=== PATIENT | female | born 1990 | race Two or more races ===

== ENCOUNTER 2017-07-13 05:22 | Inpatient (IN) | payer OTHER ==
[2017-07-13] MEDS ORDERED: BUTORPHANOL 2 MG INJ (05:31)
[2017-07-13] MEDS ORDERED: LACTATED RINGER'S 1,000 ML IV (05:36)
[2017-07-13] MEDS ORDERED: METHYLERGONOVINE 0.2 MG INJ (05:38)
[2017-07-13] MEDS ORDERED: IBUPROFEN 600 MG TAB PO (06:00)
[2017-07-13] MEDS ORDERED: OXYCODONE/ASPIRIN (4.88/325) TAB PO (06:00)
[2017-07-13] MEDS ORDERED: MISOPROSTOL 200 MCG TAB PR ×2 (06:00→10:00)
[2017-07-13] MEDS ORDERED: CARBOPROST 250 MCG INJ IM ×2 (06:00→10:00)
[2017-07-13] MEDS ORDERED: OXYTOCIN 30 UNITS/LR 500 ML IV ×2 (06:00→10:00)
[2017-07-13] MEDS: OXYTOCIN 30 UNITS/LR 500 ML IV ×3 (06:11→09:48)
[2017-07-13] MEDS: BUTORPHANOL 2 MG INJ IV (06:21)
[2017-07-13] MEDS: METHYLERGONOVINE 0.2 MG INJ IM (06:21)
[2017-07-13 06:54] LABS: ADD MAN DIFF? NO
[2017-07-13 07:02] LABS: BASOPHILS % 0.2 % (0.0-2.0); EOSINOPHILS % 0.2 % (0.0-7.0); HEMATOCRIT 39.6 % (37.0-47.0); HEMOGLOBIN 13.4 g/dl (12.0-16.0); LYMPHOCYTES # 1.3 10^3/ul (0.8-2.9); LYMPHOCYTES % 11.1 % (15.0-51.0); MEAN CORPUSCULAR HGB CONC 33.8 g/dl (32.0-37.0); MEAN CORPUSCULAR VOLUME 82.8 fl (82.0-101.0); MEAN PLATELET VOLUME 12.8 fl (7.4-10.4); MONOCYTE # 0.4 10^3/ul (0.3-0.9); MONOCYTES % 3.2 % (0.0-11.0); NEUTROPHIL # 9.6 10^3/ul (1.6-7.5); NEUTROPHILS % 84.4 % (39.0-77.0); PLATELET COUNT 164 10^3/UL (140-415); RED BLOOD COUNT 4.78 10^6/ul (4.20-5.40); RED CELL DISTRIBUTION WIDTH 13.6 % (11.5-14.5)
[2017-07-13 07:02] LABS: WHITE BLOOD COUNT 11.3 10^3/ul (4.8-10.8)
[2017-07-13 07:29] LABS: INR 1.13; PROTIME 14.7 Sec (11.9-14.9); PT RATIO 1.1
[2017-07-13 07:30] LABS: PARTIAL THROMBOPLASTIN TIME 30.1 Sec (25.0-35.0)
[2017-07-13] MEDS: LIDOCAINE 1% (MPF) 30 ML INJ INJ (07:36)
[2017-07-13 08:07] LABS: HEPATITIS B SURFACE ANTIGEN NEGATIVE (NEGATIVE)
[2017-07-13 09:13] LABS: HIV 1&2 ANTIBODY NEGATIVE (NEGATIVE)
[2017-07-13] MEDS ORDERED: ZOLPIDEM 5 MG TAB PO (10:00)
[2017-07-13] MEDS ORDERED: NACL 0.9% 3 ML SYG IV (10:00)
[2017-07-13] MEDS ORDERED: METHYLERGONOVINE 0.2 MG INJ IM (10:00)
[2017-07-13] MEDS ORDERED: SENNA/DOCUSATE NA (8.6MG/50MG) TAB PO (10:00)
[2017-07-13 10:14] LABS: AMPHETAMINE/METHAMPHETAMINE Negative (NEGATIVE); BARBITURATES Negative (NEGATIVE); BENZODIAZEPINES Negative (NEGATIVE); CANNABINOIDS Negative (NEGATIVE); COCAINE Negative (NEGATIVE); OPIATES Negative (NEGATIVE)
[2017-07-13] MEDS: IBUPROFEN 600 MG TAB PO ×2 (12:17→17:45)
[2017-07-13 17:26] LABS: RAPID PLASMA REAGIN NONREACTIVE (NR)
[2017-07-13] MEDS: LANOLIN 7 GM TUBE TOP (17:45)
[2017-07-13] MEDS: WITCH HAZEL/GLYCERIN PAD PR (17:45)
[2017-07-13] MEDS: SENNA/DOCUSATE NA (8.6MG/50MG) TAB PO (21:10)
[2017-07-13] MEDS: OXYCODONE/ASPIRIN (4.88/325) TAB PO (23:02)
[2017-07-14] MEDS: IBUPROFEN 600 MG TAB PO ×6 (06:06→23:59)
[2017-07-14 08:52] LABS: ADD MAN DIFF? NO
[2017-07-14] MEDS: SENNA/DOCUSATE NA (8.6MG/50MG) TAB PO ×2 (08:56→20:15)
[2017-07-14 08:58] LABS: WHITE BLOOD COUNT 12.7 10^3/ul (4.8-10.8)
[2017-07-14 08:58] LABS: BASOPHIL # 0.1 10^3/ul (0.0-0.1); BASOPHILS % 0.5 % (0.0-2.0); EOSINOPHILS # 0.2 10^3/ul (0.0-0.5); EOSINOPHILS % 1.3 % (0.0-7.0); HEMATOCRIT 34.3 % (37.0-47.0); HEMOGLOBIN 11.3 g/dl (12.0-16.0); LYMPHOCYTES % 23.8 % (15.0-51.0); MEAN CORPUSCULAR HEMOGLOBIN 27.9 pg (29.0-33.0); MEAN CORPUSCULAR HGB CONC 32.9 g/dl (32.0-37.0); MEAN CORPUSCULAR VOLUME 84.7 fl (82.0-101.0); MONOCYTE # 0.7 10^3/ul (0.3-0.9); MONOCYTES % 5.3 % (0.0-11.0); NEUTROPHIL # 8.7 10^3/ul (1.6-7.5); NEUTROPHILS % 68.6 % (39.0-77.0); PLATELET COUNT 160 10^3/UL (140-415); RED BLOOD COUNT 4.05 10^6/ul (4.20-5.40); RED CELL DISTRIBUTION WIDTH 13.8 % (11.5-14.5)
[2017-07-15] MEDS: IBUPROFEN 600 MG TAB PO (05:32)
[2017-07-15] MEDS: SENNA/DOCUSATE NA (8.6MG/50MG) TAB PO (08:55)
[2017-07-15] MEDS: DIPHTH/TET/ACEL PERTUSS (ADULT) 0.5 ML VIAL IM* (12:12)
[2017-07-17 11:57] LABS: RUBELLA ANTIBODY - IGG 1.91 index; RUBELLA ANTIBODY - IGM <20.00 AU/mL
== END 2017-07-15 16:15 | disposition home or self-care (01) | DRG 775 ==
LOC: L-D 05:22 → PP1 14:26
PROVIDERS: Obstetrics & Gynecology
DX: O80 Encounter for full-term uncomplicated delivery (principal); Z3A.39 39 weeks gestation of pregnancy
CPT/HCPCS: 80307; 85025; 85610; 85730; 86592; 86703; 86762; 86850; 86900; 86901; 87340; 90715

== ENCOUNTER → 2017-12-23 | Outpatient (CLI) | payer OTHER | END | disposition home or self-care (01) | LOC: U/S 17:49 | DX: O36.70X0 Maternal care for viable fetus in abdominal pregnancy, unspecified trimester, not applicable or unspecified (principal) | CPT/HCPCS: 76801 ==

== ENCOUNTER 2018-08-04 06:50 | Inpatient (IN) | payer OTHER ==
[2018-08-04] MEDS ORDERED: BUTORPHANOL 2 MG INJ IV (08:00)
[2018-08-04] MEDS ORDERED: METHYLERGONOVINE 0.2 MG INJ IM ×2 (08:00→17:00)
[2018-08-04] MEDS ORDERED: MISOPROSTOL 200 MCG TAB PR ×2 (08:00→17:00)
[2018-08-04] MEDS ORDERED: LIDOCAINE 1% (MPF) 30 ML INJ INJ (08:00)
[2018-08-04] MEDS ORDERED: OXYTOCIN 30 UNITS/LR 500 ML IV ×2 (08:00→17:00)
[2018-08-04] MEDS ORDERED: CARBOPROST 250 MCG INJ IM ×2 (08:00→17:00)
[2018-08-04] MEDS: LACTATED RINGER'S 1,000 ML IV ×2 (08:08→13:13)
[2018-08-04 08:43] LABS: RUPTURE FETAL MEMBRANES POSITIVE (NEGATIVE)
[2018-08-04 08:48] LABS: ADD MAN DIFF? NO
[2018-08-04 08:51] LABS: BASOPHILS % 0.4 % (0.0-2.0); EOSINOPHILS # 0.1 10^3/ul (0.0-0.5); HEMATOCRIT 38.9 % (37.0-47.0); LYMPHOCYTES # 1.7 10^3/ul (0.8-2.9); LYMPHOCYTES % 21.9 % (15.0-51.0); MEAN CORPUSCULAR HEMOGLOBIN 28.5 pg (29.0-33.0); MEAN CORPUSCULAR HGB CONC 33.4 g/dl (32.0-37.0); MEAN CORPUSCULAR VOLUME 85.3 fl (82.0-101.0); MEAN PLATELET VOLUME 12.8 fl (7.4-10.4); MONOCYTE # 0.5 10^3/ul (0.3-0.9); MONOCYTES % 5.9 % (0.0-11.0); NEUTROPHIL # 5.5 10^3/ul (1.6-7.5); NEUTROPHILS % 70.3 % (39.0-77.0); PLATELET COUNT 163 10^3/UL (140-415); RED BLOOD COUNT 4.56 10^6/ul (4.20-5.40)
[2018-08-04 08:51] LABS: WHITE BLOOD COUNT 7.8 10^3/ul (4.8-10.8)
[2018-08-04 09:12] LABS: INR 1.05; PROTIME 13.8 Sec (11.9-14.9); PT RATIO 1.1
[2018-08-04 09:13] LABS: PARTIAL THROMBOPLASTIN TIME 33.2 Sec (23.0-35.0)
[2018-08-04] MEDS ORDERED: AMPICILLIN 1 GM/NS (PMX) 50 ML IV (12:00)
[2018-08-04] MEDS ORDERED: FENTAnyl 2MCG/ML-ROPIV 0.2% 100 ML BAG EPI (13:30)
[2018-08-04] MEDS ORDERED: NALOXONE (0.4 MG/ML) INJ IV (13:30)
[2018-08-04] MEDS ORDERED: FENTAnyl 2MCG/ML-ROPIV 0.2% 100 ML (13:35)
[2018-08-04] MEDS: OXYTOCIN 30 UNITS/LR 500 ML IV ×2 (14:41→14:43)
[2018-08-04] MEDS: AMPICILLIN 2 GM/NS (PMX) 100 ML IV (16:10)
[2018-08-04] MEDS ORDERED: ZOLPIDEM 5 MG TAB PO (17:00)
[2018-08-04] MEDS ORDERED: HYDROCODONE/APAP (5/325) TAB PO ×2 (17:00)
[2018-08-04] MEDS ORDERED: DIBUCAINE 1% 30 GM OINT TOP (17:00)
[2018-08-04] MEDS: MINERAL OIL 30ML CUP PO ×2 (17:48)
[2018-08-04] MEDS: KETOROLAC 30 MG INJ IV (17:49)
[2018-08-04] MEDS: CEPHALEXIN 500 MG CAP PO ×2 (18:02→23:46)
[2018-08-04] MEDS: IBUPROFEN 600 MG TAB PO ×2 (18:02→23:46)
[2018-08-04] MEDS: WITCH HAZEL/GLYCERIN PAD PR (18:02)
[2018-08-04] MEDS: BENZOCAINE 20% 56 ML SPRAY TOP (18:02)
[2018-08-04] MEDS: LANOLIN HPA 1 PKT TOP (18:02)
[2018-08-04] MEDS: ACETAMINOPHEN 500 MG TAB PO (18:39)
[2018-08-04] MEDS: LACTATED RINGER'S 1,000 ML IV* (21:05)
[2018-08-04 21:06] LABS: RAPID PLASMA REAGIN NONREACTIVE (NR)
[2018-08-04] MEDS: MAGNESIUM HYDROXIDE 30ML CUP PO (23:46)
[2018-08-04] MEDS: SENNA/DOCUSATE NA (8.6MG/50MG) TAB PO (23:46)
[2018-08-05] MEDS: LACTATED RINGER'S 1,000 ML IV* ×3 (00:43→16:43)
[2018-08-05] MEDS: CEPHALEXIN 500 MG CAP PO ×4 (05:51→23:56)
[2018-08-05] MEDS: IBUPROFEN 600 MG TAB PO ×4 (05:52→23:56)
[2018-08-05 07:18] LABS: ADD MAN DIFF? NO
[2018-08-05 07:34] LABS: WHITE BLOOD COUNT 9.2 10^3/ul (4.8-10.8)
[2018-08-05 07:34] LABS: BASOPHILS % 0.3 % (0.0-2.0); EOSINOPHILS # 0.2 10^3/ul (0.0-0.5); EOSINOPHILS % 1.7 % (0.0-7.0); HEMATOCRIT 33.1 % (37.0-47.0); HEMOGLOBIN 11.1 g/dl (12.0-16.0); LYMPHOCYTES # 2.4 10^3/ul (0.8-2.9); LYMPHOCYTES % 25.7 % (15.0-51.0); MEAN CORPUSCULAR HEMOGLOBIN 29.1 pg (29.0-33.0); MEAN CORPUSCULAR HGB CONC 33.5 g/dl (32.0-37.0); MEAN CORPUSCULAR VOLUME 86.6 fl (82.0-101.0); MONOCYTE # 0.6 10^3/ul (0.3-0.9); MONOCYTES % 6.7 % (0.0-11.0); NEUTROPHILS % 65.3 % (39.0-77.0); PLATELET COUNT 147 10^3/UL (140-415); RED BLOOD COUNT 3.82 10^6/ul (4.20-5.40); RED CELL DISTRIBUTION WIDTH 13.2 % (11.5-14.5)
[2018-08-05] MEDS: SENNA/DOCUSATE NA (8.6MG/50MG) TAB PO ×2 (08:50→20:41)
[2018-08-05] MEDS: MAGNESIUM HYDROXIDE 30ML CUP PO ×2 (08:50→20:41)
[2018-08-06] MEDS: LACTATED RINGER'S 1,000 ML IV* (00:43)
[2018-08-06] MEDS: CEPHALEXIN 500 MG CAP PO ×3 (06:34→17:26)
[2018-08-06] MEDS: IBUPROFEN 600 MG TAB PO ×3 (06:34→17:26)
[2018-08-06] MEDS: MAGNESIUM HYDROXIDE 30ML CUP PO (08:40)
[2018-08-06] MEDS: SENNA/DOCUSATE NA (8.6MG/50MG) TAB PO (08:40)
[2018-08-06] MEDS: MEASLES,MUMPS,RUBELLA VACCINE INJ SC* (09:52)
[2018-08-06] MEDS: DIPHTH/TET/ACEL PERTUSS (ADULT) 0.5 ML VIAL IM* (09:52)
[2018-08-06] MEDS: VARICELLA VACCINE LIVE/PF 1,350 UNIT/0.5 ML ML SC* (09:53)
== END 2018-08-06 18:45 | disposition home or self-care (01) | DRG 807 ==
LOC: OBT 06:50 → L-D 06:55 → OBT 07:15 → L-D 07:15 → PP1 15:57
PROVIDERS: Obstetrics & Gynecology
PROC: 10E0XZZ Delivery of Products of Conception, External Approach (ICD-10-PCS; principal; 2018-08-04)
PROC: 0HQ9XZZ Repair Perineum Skin, External Approach (ICD-10-PCS; 2018-08-04)
DX: O70.9 Perineal laceration during delivery, unspecified (principal); Z37.0 Single live birth; Z3A.39 39 weeks gestation of pregnancy
CPT/HCPCS: 62322; 84112; 85025; 85610; 85730; 86592; 86850; 86900; 86901; 90716